=== PATIENT | male | born 1985 | race Hispanic/Latino ===

== ENCOUNTER 2022-02-07 23:18 | Observation (INO) | payer OTHER ==
[~2022-02-07] VITALS: Ht 157.5 cm; Wt 93.8 kg
[2022-02-07] MEDS ORDERED: ONDANSETRON 4MG INJ ONE (23:39)
[2022-02-07] MEDS ORDERED: DICYCLOMINE 20MG (10MG/ML) AMP IM STA (23:41)
[2022-02-07 23:47] LABS: BASOPHILS % (AUTO) 0.6 % (0.0-5.0); EOSINOPHILS % (AUTO) 1.2 % (0.0-8.0); HEMATOCRIT 46.3 % (42-54); LYMPHOCYTES % (AUTO) 9.3 % (21.0-51.0); MEAN CORPUSCULAR HEMOGLOBIN 28.7 pg (27.0-33.0); MEAN CORPUSCULAR HGB CONC 34.8 g/dL (32.0-36.0); MEAN CORPUSCULAR VOLUME 82.5 fL (79-99); MONOCYTES % (AUTO) 7.5 % (3.0-13.0); NEUTROPHILS % (AUTO) 81.1 % (40.0-77.0); PLATELET COUNT (AUTO) 199 K/uL (130-400); RED BLOOD CELL COUNT(AUTO) 5.61 MIL/uL (4.50-6.20); WHITE BLOOD COUNT (AUTO) 12.6 K/uL (4.8-10.8)
[2022-02-07 23:58] LABS: POTASSIUM 3.9 mmol/L (3.5-5.1)
[2022-02-07 23:59] LABS: APPEARANCE,URINE CLEAR (CLEAR); BILIRUBIN,URINE NEGATIVE (NEGATIVE); COLOR,URINE YELLOW (YELLOW); GLUCOSE, URINE (UA) >=1000 mg/dL (NEGATIVE); KETONES,URINE 15 mg/dL (NEGATIVE); LEUKOCYTE ESTERASE ,URINE NEGATIVE (NEGATIVE); NITRATE,URINE NEGATIVE (NEGATIVE); OCCULT BLOOD,URINE NEGATIVE (NEGATIVE); PROTEIN,URINE NEGATIVE (NEGATIVE); UROBILINOGEN,URINE 0.2 mg/dL (0.2-1.0)
[2022-02-08] VITALS (21 sets, daily range): BP systolic 103–155; BP diastolic 69–88
[2022-02-08] MEDS ORDERED: FAMOTIDINE 20MG VIAL IV ONE
[2022-02-08] MEDS ORDERED: 0.9%NACL 1000ML 1,000 ML IV SCH
[2022-02-08 00:02] LABS: ALBUMIN 3.9 g/dL (3.5-5.0); BILIRUBIN,TOTAL 0.7 mg/dL (0.2-1.0); TOTAL PROTEIN, SERUM 7.8 g/dL (6.0-8.3)
[2022-02-08 00:10] LABS: BACTERIA,URINE None Seen /HPF (None Seen); RBC,URINE None Seen /HPF (0-1); WBC,URINE None Seen /HPF (0-1)
[2022-02-08] MEDS ORDERED: IOHEXOL-350 75 ML VIAL IV ONE (01:04)
[2022-02-08] MEDS ORDERED: ZOSYN 3.375GM +NS 50ML IV SCH (02:00)
[2022-02-08] MEDS ORDERED: MORPHINE 4 MG SYG IVP ONE (02:00)
[2022-02-08] MEDS ORDERED: DiphenhydrAMINE HCL 50 MG/ML VIAL IV PRN (02:30)
[2022-02-08] MEDS: 0.9%NACL 1000ML 1,000 ML IV SCH ×3 (04:30→20:30)
[2022-02-08] MEDS: ZOSYN 3.375GM+NS 50ML 50 ML IV SCH ×3 (04:40→21:10)
[2022-02-08] MEDS: MORPHINE 4 MG SYG IV PRN ×3 (04:40→17:23)
[2022-02-08] MEDS: ONDANSETRON 4MG INJ IV PRN ×2 (04:40→12:41)
[2022-02-08] MEDS: FAMOTIDINE 20MG VIAL IV SCH ×2 (10:03→21:10)
[2022-02-08] MEDS ORDERED: SUCCINYLCHOLINE CHLORIDE 20 MG/ML 10 ML VIAL ONE (17:45)
[2022-02-08] MEDS ORDERED: ROCURONIUM 10MG/1ML SYR 10 MG/ML ML ONE (17:46)
[2022-02-08] MEDS ORDERED: FENTANYL CITRATE PF 50 MCG/1 ML 5ML AMP IV ONE (17:46)
[2022-02-08] MEDS ORDERED: MIDAZOLAM HCL 1 MG/ML 2ML VIAL ONE (17:46)
[2022-02-08] MEDS ORDERED: PROPOFOL 10 MG/ML 20ML VIAL IV ONE (17:46)
[2022-02-08] MEDS ORDERED: MEPERIDINE-PF 25 MG/ML SYG ONE (18:26)
[2022-02-08] MEDS ORDERED: BUPIVACAINE/PF 0.25% 50ML VIAL IJ ONE ×2 (18:30)
[2022-02-08] MEDS ORDERED: NEOSTIGMINE 5MG/5ML SYR IV ONE (18:43)
[2022-02-08] MEDS ORDERED: GLYCOPYRROLATE 1 MG/5 ML SYRINGE ONE (18:43)
[2022-02-08] MEDS: KETOROLAC 15MG/ML VIAL (15MG/ML) IM PRN (21:15)
[2022-02-09 00:35] VITALS: BP 110/59
[2022-02-09 01:35] VITALS: BP 116/69
[2022-02-09] MEDS: 0.9%NACL 1000ML 1,000 ML IV SCH (03:44)
[2022-02-09] MEDS: MORPHINE 4 MG SYG IV PRN (03:57)
[2022-02-09 04:00] VITALS: BP 114/73
[2022-02-09] MEDS: ZOSYN 3.375GM+NS 50ML 50 ML IV SCH ×2 (04:44→13:21)
[2022-02-09 06:04] LABS: BASOPHILS % (AUTO) 0.5 % (0.0-5.0); EOSINOPHILS % (AUTO) 1.3 % (0.0-8.0); HEMATOCRIT 43.2 % (42-54); LYMPHOCYTES % (AUTO) 8.5 % (21.0-51.0); MEAN CORPUSCULAR HEMOGLOBIN 28.5 pg (27.0-33.0); MEAN CORPUSCULAR HGB CONC 33.3 g/dL (32.0-36.0); MEAN CORPUSCULAR VOLUME 85.5 fL (79-99); MONOCYTES % (AUTO) 6.6 % (3.0-13.0); NEUTROPHILS % (AUTO) 82.5 % (40.0-77.0); PLATELET COUNT (AUTO) 154 K/uL (130-400); RED BLOOD CELL COUNT(AUTO) 5.05 MIL/uL (4.50-6.20); RED CELL DISTRIBUTION WIDTH 12.2 % (11.0-15.5); WHITE BLOOD COUNT (AUTO) 10.1 K/uL (4.8-10.8)
[2022-02-09 06:12] LABS: POTASSIUM 4.1 mmol/L (3.5-5.1)
[2022-02-09 07:30] VITALS: BP 122/76
[2022-02-09] MEDS: FAMOTIDINE 20MG VIAL IV SCH (09:32)
[2022-02-09 11:00] VITALS: BP 137/83
[2022-02-09 16:00] VITALS: BP 138/78
[2022-02-09] MEDS: KETOROLAC 15MG/ML VIAL (15MG/ML) IM PRN (17:28)
== END 2022-02-09 18:30 | disposition home or self-care (01) ==
LOC: EDH 23:18 → EDHIP 02-08 02:19 → INTOOBSV 02-08 02:19 → 3CH 02-08 07:47
PROVIDERS: ADMIT Internal Medicine; ATTEND Internal Medicine
DX: U07.1 COVID-19 (principal); K35.80 Unspecified acute appendicitis; E11.65 Type 2 diabetes mellitus with hyperglycemia; J10.1 Influenza due to other identified influenza virus with other respiratory manifestations; R19.7 Diarrhea, unspecified; F17.210 Nicotine dependence, cigarettes, uncomplicated; Z79.899 Other long term (current) drug therapy; Z98.890 Other specified postprocedural states
CPT/HCPCS: 36415; 71045; 74177; 80048; 80053; 81001; 82948; 83036; 83690; 85025; 87635; 87804; 96361; 96365; 96366; 96372; 96375; 96376; C9803; G0378; J0330; J0500; J1885; J2175; J2250; J2270; J2405; J2543; J2704; J2710; J3010; J3490; J7030; Q9967